=== PATIENT | male | born 1990 | race African-American/Black ===

== ENCOUNTER 2016-12-06 03:44 | Emergency (ER) | payer OTHER ==
[~2016-12-06] VITALS: Ht 185.4 cm; Wt 76.7 kg
[~2016-12-06 03:44] MED LIST: FLEXERIL PO; IBUPROFEN 800800 MG PO; NOHOMEMEDICATIONS; NORCO 5-325 TA1 EACH PO; NORCO 7.5-3251 EACH PO; STRIBILD TABLE1 EACH PO; ZOFRAN ODT4 M1 PO
[2016-12-06 04:40] LABS: AMP/METHAMP Negative (Negative); BARBITURATES Negative (Negative); BENZODIAZEPINES Negative (Negative); COCAINE POSITIVE (Negative); METHADONE Negative (Negative); OPIATES Negative (Negative); PCP Negative (Negative); THC POSITIVE (Negative)
[2016-12-06 05:24] VITALS: BP 124/87
== END 2016-12-06 05:25 | disposition home or self-care (01) ==
LOC: ER 03:44
PROVIDERS: Emergency Medicine
DX: F10.129 Alcohol abuse with intoxication, unspecified (principal); R11.2 Nausea with vomiting, unspecified; B20 Human immunodeficiency virus [HIV] disease

== ENCOUNTER 2017-11-03 06:31 | Emergency (ER) | payer OTHER ==
[~2017-11-03] VITALS: Ht 182.9 cm; Wt 74.8 kg
[~2017-11-03 06:31] MED LIST changes: +GABAPENTIN 100100 MG; +ZPAK PO
[2017-11-03] MEDS ORDERED: OSELB75 PO (07:23)
== END 2017-11-03 09:00 | disposition home or self-care (01) ==
LOC: ER 06:31
DX: J11.1 Influenza due to unidentified influenza virus with other respiratory manifestations (principal); B20 Human immunodeficiency virus [HIV] disease; F17.210 Nicotine dependence, cigarettes, uncomplicated

== ENCOUNTER 2018-04-13 12:30 | Emergency (ER) | payer OTHER ==
[~2018-04-13] VITALS: Ht 182.9 cm; Wt 74.8 kg
[~2018-04-13 12:30] MED LIST changes: +OSELB75 PO
[2018-04-13] MEDS ORDERED: BUTALB-APAP-CA1 EACH PO (13:49)
[2018-04-13] MEDS ORDERED: AFRIN30 ML NASAL (13:49)
[2018-04-13 13:52] VITALS: BP 133/82
== END 2018-04-13 13:55 | disposition home or self-care (01) ==
LOC: ER 12:30
DX: R51 Headache (principal); R11.0 Nausea; F17.210 Nicotine dependence, cigarettes, uncomplicated; F12.10 Cannabis abuse, uncomplicated

== ENCOUNTER 2018-06-26 08:43 | Emergency (ER) | payer OTHER ==
[~2018-06-26] VITALS: Ht 182.9 cm; Wt 77.1 kg
[~2018-06-26 08:43] MED LIST changes: +AFRIN30 ML NASAL; +BUTALB-APAP-CA1 EACH PO
[2018-06-26] MEDS ORDERED: GENVOYA TABLET1 EACH PO (09:04)
[2018-06-26 09:34] LABS: ABSOLUTE NEUTROPHILS 1.8 thou/uL (1.4-8.2); BASOPHILS 1.1 % (0.0-2.0); HEMATOCRIT 44.4 % (42.0-52.0); HEMOGLOBIN 15.2 gm/dL (14.0-18.0); LYMPHOCYTES 49.2 % (24.0-44.0); MCH 28.8 pg (26.0-34.0); MCHC 34.3 g/dL (28.0-37.0); MCV 84.1 fL (80.0-100.0); MONOCYTES 9.4 % (1.0-8.0); PLATELET COUNT 269 thou/uL (150-400); POLYS 38.3 % (36.0-66.0); RBC 5.28 mil/uL (4.50-6.00); RDW 13.3 % (10.5-14.5); WBC 4.7 thou/uL (4.0-11.0)
[2018-06-26 09:35] LABS: URINE BILIRUBIN NEGATIVE (Negative); URINE BLOOD NEGATIVE (Negative); URINE CLARITY CLEAR; URINE COLOR YELLOW; URINE GLUCOSE-RANDOM* NEGATIVE (Negative); URINE KETONES NEGATIVE (Negative); URINE LEUKOCYTES-REFLEX NEGATIVE (Negative); URINE NITRITE-REFLEX NEGATIVE (Negative); URINE PROTEIN (DIPSTICK) NEGATIVE (Negative); URINE SPECIFIC GRAVITY 1.025 (1.005-1.035); URINE UROBILINOGEN 0.2 E.U./dl (0.2-1.0)
[2018-06-26 09:37] LABS: CALCIUM 9.3 mg/dL (8.5-10.1); CREATININE 1.1 mg/dL (0.7-1.3); POTASSIUM 3.5 mmol/L (3.5-5.1)
[2018-06-26 09:43] LABS: ALBUMIN 3.9 g/dL (3.4-5.0); DIRECT BILIRUBIN 0.1 mg/dL (<0.1-0.3); TOTAL BILIRUBIN 0.4 mg/dL (<0.1-1.0); TOTAL PROTEIN 7.4 g/dL (6.4-8.2)
[2018-06-26] MEDS ORDERED: MOBIC15 MG PO (10:02)
[2018-06-26] MEDS ORDERED: BENTYL 20 MG TA20 M1 PO (10:02)
[2018-06-26 10:46] VITALS: BP 111/65
== END 2018-06-26 10:46 | disposition home or self-care (01) ==
LOC: ER 08:43
PROVIDERS: Emergency Medicine
DX: R10.30 Lower abdominal pain, unspecified (principal); R19.7 Diarrhea, unspecified; F17.210 Nicotine dependence, cigarettes, uncomplicated; Z21 Asymptomatic human immunodeficiency virus [HIV] infection status

== ENCOUNTER 2018-08-25 20:53 | Emergency (ER) | payer OTHER ==
[~2018-08-25] VITALS: Ht 182.9 cm; Wt 79.4 kg
[~2018-08-25 20:53] MED LIST changes: +BENTYL 20 MG TA20 M1 PO; +GENVOYA TABLET1 EACH PO; +MOBIC15 MG PO
[2018-08-25 20:56] VITALS: BP 146/88
[2018-08-25] MEDS ORDERED: AMOXICILLIN 50500 MG PO (21:59)
== END 2018-08-25 22:08 | disposition home or self-care (01) ==
LOC: ER 20:53
DX: J02.9 Acute pharyngitis, unspecified (principal)

== ENCOUNTER 2018-10-04 08:16 | Emergency (ER) | payer OTHER ==
[~2018-10-04] VITALS: Ht 182.9 cm; Wt 77.1 kg
[~2018-10-04 08:16] MED LIST changes: +AMOXICILLIN 50500 MG PO
[2018-10-04 08:18] VITALS: BP 120/78
[2018-10-04] MEDS ORDERED: BACTRIM DS TAB1 EACH PO (09:31)
[2018-10-04] MEDS ORDERED: IBUPROFEN 600600 M1 PO (09:31)
== END 2018-10-04 09:49 | disposition home or self-care (01) ==
LOC: ER 08:16
DX: H66.91 Otitis media, unspecified, right ear (principal); H60.01 Abscess of right external ear; F17.210 Nicotine dependence, cigarettes, uncomplicated; Z21 Asymptomatic human immunodeficiency virus [HIV] infection status

== ENCOUNTER 2019-10-29 18:03 | Emergency (ER) | payer OTHER ==
[~2019-10-29] VITALS: Ht 182.9 cm; Wt 83.9 kg
[~2019-10-29 18:03] MED LIST changes: +BACTRIM DS TAB1 EACH PO; +IBUPROFEN 600600 M1 PO
[2019-10-29 18:27] LABS: ABSOLUTE NEUTROPHILS 10.7 thou/uL (1.4-8.2); BASOPHILS 0.3 % (0.0-2.0); EOSINOPHILS 0.1 % (0.0-3.0); HEMATOCRIT 49.3 % (42.0-52.0); HEMOGLOBIN 16.3 gm/dL (14.0-18.0); LYMPHOCYTES 8.5 % (24.0-44.0); MCH 27.8 pg (26.0-34.0); MCV 84.3 fL (80.0-100.0); MONOCYTES 4.2 % (1.0-8.0); PLATELET COUNT 325 thou/uL (150-400); POLYS 86.9 % (36.0-66.0); RBC 5.85 mil/uL (4.50-6.00); RDW 13.3 % (10.5-14.5); WBC 12.4 thou/uL (4.0-11.0)
[2019-10-29 18:27] LABS: URINE BILIRUBIN NEGATIVE (Negative); URINE BLOOD 1+ (Negative); URINE CLARITY CLEAR; URINE COLOR YELLOW; URINE GLUCOSE-RANDOM* NEGATIVE (Negative); URINE KETONES NEGATIVE (Negative); URINE LEUKOCYTES-REFLEX NEGATIVE (Negative); URINE NITRITE-REFLEX NEGATIVE (Negative); URINE PROTEIN (DIPSTICK) 2+ (Negative); URINE SPECIFIC GRAVITY >= 1.030 (1.005-1.035); URINE UROBILINOGEN 0.2 E.U./dl (0.2-1.0)
[2019-10-29 18:34] LABS: CALCIUM 9.3 mg/dL (8.5-10.1); CREATININE 1.1 mg/dL (0.7-1.3); POTASSIUM 3.8 mmol/L (3.5-5.1)
[2019-10-29 18:38] LABS: AMP/METHAMP Negative (Negative); BARBITURATES Negative (Negative); BENZODIAZEPINES Negative (Negative); COCAINE Negative (Negative); METHADONE Negative (Negative); OPIATES Negative (Negative); PCP Negative (Negative)
[2019-10-29 18:40] LABS: TOTAL BILIRUBIN 0.5 mg/dL (<0.1-1.0); TOTAL PROTEIN 9.2 g/dL (6.4-8.2)
[2019-10-29 18:50] LABS: MUCUS >6 Heavy strn/LPF (None Seen); SQUAMOUS 0-3 Few /LPF (0-3)
[2019-10-29 18:51] LABS: BACTERIA-REFLEX None Seen /HPF (None Seen); CASTS None Seen /LPF (None Seen); CRYSTALS None Seen /LPF (None Seen); URINE RBC 0-2 Rare /HPF (0-2); URINE WBC-REFLEX 0-5 Rare /HPF (0-5)
[2019-10-29] MEDS ORDERED: TRAZODONE HCL50 MG PO (19:15)
[2019-10-29] MEDS ORDERED: PHENERGAN 25 MG25 M1 PO (19:20)
[2019-10-29] MEDS ORDERED: ONDANSETRON HCL4 M2 PO (19:20)
[2019-10-29 19:46] VITALS: BP 132/78
== END 2019-10-29 19:47 | disposition home or self-care (01) ==
LOC: ER 18:03
PROVIDERS: Nurse Practitioner Family
DX: R11.2 Nausea with vomiting, unspecified (principal); B20 Human immunodeficiency virus [HIV] disease; F17.210 Nicotine dependence, cigarettes, uncomplicated

== ENCOUNTER 2021-07-31 19:41 | Emergency (ER) | payer OTHER ==
[~2021-07-31] VITALS: Ht 185.4 cm; Wt 78.0 kg
[~2021-07-31 19:41] MED LIST changes: +ONDANSETRON HCL4 M2 PO; +PHENERGAN 25 MG25 M1 PO; +TRAZODONE HCL50 MG PO
[2021-07-31 21:22] LABS: BASOPHILS 0.8 % (0.0-2.0); EOSINOPHILS 0.6 % (0.0-3.0); HEMATOCRIT 43.9 % (42.0-52.0); HEMOGLOBIN 14.4 gm/dL (14.0-18.0); LYMPHOCYTES 29.3 % (24.0-44.0); MCH 27.8 pg (26.0-34.0); MCHC 32.9 g/dL (28.0-37.0); MCV 84.4 fL (80.0-100.0); PLATELET COUNT 225 thou/uL (150-400); POLYS 60.3 % (36.0-66.0); RBC 5.19 mil/uL (4.50-6.00); RDW 13.4 % (10.5-14.5); WBC 6.7 thou/uL (4.0-11.0)
[2021-07-31 21:29] LABS: CALCIUM 8.8 mg/dL (8.5-10.1); CREATININE 0.9 mg/dL (0.7-1.3); POTASSIUM 3.9 mmol/L (3.5-5.1)
[2021-07-31 21:34] LABS: TOTAL BILIRUBIN 0.4 mg/dL (0.2-1.0); TOTAL PROTEIN 7.4 g/dL (6.4-8.2)
[2021-07-31 21:43] VITALS: BP 160/82
== END 2021-07-31 21:43 | disposition left against medical advice (07) ==
LOC: ER 19:41
PROVIDERS: Emergency Medicine
DX: R10.32 Left lower quadrant pain (principal); R11.0 Nausea; Z21 Asymptomatic human immunodeficiency virus [HIV] infection status; Z79.899 Other long term (current) drug therapy